=== PATIENT | male | born 1960 | race Caucasian/White ===

== ENCOUNTER 2016-11-04 13:46 | Emergency (ER) | payer OTHER ==
--- NOTE | ~2016-11-04 | EKG ---
PATIENT: KYLAH HUSSEIN UNIT #: [id number] Ventricular Rate: 80 BPM Atrial Rate: 80 BPM P-R Interval: 158 ms QRS Duration: 90 ms Q-T Interval: 400 ms QTC Calculation(Bezet): 461 ms P [place]: 42 degrees Calculated R [place]: -28 degrees Calculated T [place]: 8 degrees Diagnosis Line: Normal sinus rhythm Diagnosis Line: Minimal voltage criteria for LVH, may be normal Diagnosis Line: variant Diagnosis Line: Borderline ECG Diagnosis Line: When compared with ECG of 22-MAY-2015 06:26, Diagnosis Line: No significant change was found Diagnosis Line: Confirmed by JAKE CURRIE MD ([id number]) on Diagnosis Line: 12/21/2016 4:04:36 PM INTERPRETING MD: AVIVA
--- NOTE | ~2016-11-04 | CT71 ---
[facility] A Service of [facility] RADIOLOGY TEXT RESULTS PATIENT: KYLAH HUSSEIN LOCATION: SED : 58 UNIT #: [id number] AGE: [address]: Pollo Mcknight MD SEX: M ORDER DR: [id number] [address] [address] [id number] E MR#: [id number] Acc #: [id number] NAME: KYLAH HUSSEIN : 1960 SEX: M STUDY DATE/TIME: 11/04/2016 14:27 UNIT: SED ROOM: STUDY DESCRIPTION: CT Head Wo Contrast Attending Physician: Pollo Mcknight M.D. Ordering Physician: Pollo Mcknight M.D. Primary Care Physician: Garima Ramirez M.D. MEDICAL IMAGING REPORT This report is preliminary unless electronic signature is present. EXAM CT head without contrast dated 11/04/2016. COMPARISON STUDIES None HISTORY Syncope today while at work. Patient was lifting boxes when he fell. TECHNIQUE CT of the head was obtained without contrast in the axial plane as per the protocol. This CT exam was performed with one or more of the following radiation dose reduction techniques: automatic exposure control, adjustment of mA and/or kV according to patient size, and iterative reconstruction. FINDINGS Cavum septum pellucidum and verae are incidentally noted. No hydrocephalus, space-occupying intracranial mass, mass effect, midline shift, or hydrocephalus. S-shaped nasal septal deviation is seen. Nodular mucosal thickening is seen in bilateral maxillary antra, particularly in the floor. Mastoid air cells are well aerated. Diffuse fatty infiltration of bilateral parotid glands are seen. Accessory right parotid gland is also present. Streak artifact from dental work limits evaluation. IMPRESSION 1. No acute intracranial hemorrhage, hydrocephalus, space-occupying obvious large intracranial mass or midline shift. 2. Small cavum septum pellucidum and vergae are seen. 3. If there is persistent clinical concern, [facility] A Service of [facility] RADIOLOGY TEXT RESULTS PATIENT: KYLAH HUSSEIN LOCATION: SED : 58 UNIT #: [id number] AGE: [address]: Pollo Mcknight MD SEX: M ORDER DR: evaluation of subtle lesions. Dictated by... Bridget Craven M.D. THIS IS AN ELECTRONICALLY VERIFIED REPORT Bridget Craven M.D. at 11/05/2016 10:28 AM CPR/tmw TD: 11/04/2016 15:22 JOB #: [id number] MEDICAL IMAGING REPORT
--- NOTE | ~2016-11-04 | CR72 ---
[facility]. [facility] A Service of [facility] RADIOLOGY TEXT RESULTS PATIENT: KYLAH HUSSEIN LOCATION: SED : 58 UNIT #: [id number] AGE: [address]: Pollo Mcknight MD SEX: M ORDER DR: [id number] [address] [address] [id number] E MR#: [id number] Acc #: [id number] NAME: KYLAH HUSSEIN : 1960 SEX: M STUDY DATE/TIME: 11/04/2016 13:13 UNIT: SED ROOM: STUDY DESCRIPTION: CR Chest Single View Portable Attending Physician: Pollo Mcknight M.D. Ordering Physician: Pollo Mcknight M.D. Primary Care Physician: Garima Ramirez M.D. MEDICAL IMAGING REPORT This report is preliminary unless electronic signature is present. EXAM AP portable chest, 11/04/2016 at 13:13 HISTORY 56-year-old male with near-syncopal episode today. Weakness. COMPARISON PA and lateral chest radiograph, 05/21/2015. FINDINGS Stable mild cardiac enlargement. Pulmonary vascular distribution is normal. No acute airspace disease is seen. The medial lung apices is partially obscured by patient's chin. No pleural effusion or pneumothorax is identified. IMPRESSION Stable mild cardiac enlargement. No acute chest findings. Dictated by... Sonja Cooper M.D. THIS IS AN ELECTRONICALLY VERIFIED REPORT Sonja Cooper M.D. at 11/05/2016 2:14 PM VIPUL/james TD: 11/04/2016 14:16 JOB #: [id number] MEDICAL IMAGING REPORT
[~2016-11-04 13:46] MED LIST: ASPIRIN EC81 M1 PO; LOPRESSOR PO; VITAMIN D400 UNI2 PO; ZESTRIL5 MG PO
[2016-11-04 14:03] LABS: BASOPHIL% 0.4 % (0-2.5); EOSINOPHIL# 0.1 X10e3 (0-0.7); EOSINOPHIL% 1.6 % (0.0-7.0); HEMATOCRIT 33.6 % (38.0-50.0); LYMPHOCYTE# 1.1 X10e3 (1.0-3.5); LYMPHOCYTE% 12.3 % (17.0-45.0); MEAN CELL VOLUME 102.3 FL (83-96); MEAN CORPUSCULAR HEMOGLOBIN 33.4 PG (28-34); MEAN CORPUSCULAR HGB CONC 32.7 g/dL (30-36); MEAN PLATELET VOLUME 9.2 FL (6.5-11.5); MONOCYTE# 0.6 X10e3 (0-1.0); MONOCYTE% 7.2 % (3.0-12.0); NEUTROPHIL# 6.9 X10e3 (1.5-7.1); NEUTROPHIL% 78.5 % (40-75); PLATELET COUNT 130 X10e3 (140-420); RED BLOOD COUNT 3.28 X10e (3.90-5.60); WHITE BLOOD COUNT 8.8 X10e3 (4.0-10.5)
[2016-11-04 14:04] LABS: DIFF IND NO
[2016-11-04 14:04] LABS: POC - CKMB <1.0 ng/mL (0.0-7.9); POC - MYOGLOBIN 79.2 ng/mL (0.0-169.0); POC - TROPONIN <0.05 ng/mL (<=0.05)
[2016-11-04 14:38] LABS: BLOOD UREA NITROGEN 7 mg/dL (9-23); CARBON DIOXIDE 24 mmol/L (22-31); CHLORIDE 109 mmol/L (100-111); GLOM FILT RATE Estimated ABOVE60 mL/min (>60); GLUCOSE FASTING 80 mg/dL (70-110); SODIUM 141 mmol/L (135-145)
[2016-11-04 14:39] LABS: CALCIUM SERUM 5.7 mg/dL (8.4-10.2); POTASSIUM 2.9 mmol/L (3.5-5.1)
== END 2016-11-04 16:30 | disposition home or self-care (01) ==
LOC: SED 13:46
PROVIDERS: Emergency Medicine
DX: R55 Syncope and collapse (principal); E87.6 Hypokalemia; E83.51 Hypocalcemia; Z98.890 Other specified postprocedural states
CPT/HCPCS: 70450; 71010; 80048; 82553; 83874; 84484; 85025; 93005; 96361; 96365; 99284

== ENCOUNTER 2017-03-23 11:44 | Emergency (ER) | payer OTHER ==
[~2017-03-23] VITALS: Ht 175.3 cm; Wt 104.3 kg
--- NOTE | ~2017-03-23 | CR72 ---
[facility] A Service of [facility] & [facility] RADIOLOGY TEXT RESULTS PATIENT: KYLAH HUSSEIN LOCATION: [facility] : 58 UNIT #: [id number] AGE: [address]: Reece Mckeon MD SEX: M ORDER DR: [id number] [facility] [address] [place], [place] [address] [id number] E MR#: [id number] Acc #: [id number] NAME: KYLAH HUSSEIN : 1960 SEX: M STUDY DATE/TIME: 03/23/2017 12:52 UNIT: [facility] ROOM: STUDY DESCRIPTION: CR Chest Single View Portable Attending Physician: Reece Mckeon M.D. Ordering Physician: Reece Mckeon M.D. Primary Care Physician: Primary Care Physician No MEDICAL IMAGING REPORT This report is preliminary unless electronic signature is present EXAM Chest portable, 03/23/2017 1252 hours HISTORY 57-year-old man who suffered syncopal episode today. History of hypertension and prior seizure. COMPARISON 11/04/2016 FINDINGS Portable upright chest demonstrates stable vccc-mz-tlwxahbr cardiomegaly and minimally tortuous aorta. Pulmonary vascularity is normal. The lungs are clear and there are no effusions. IMPRESSION Stable ibon-lt-wbenwrkr cardiomegaly. The lungs are clear and there are no effusions. Dictated by... Jeri Cruz M.D. THIS IS AN ELECTRONICALLY VERIFIED REPORT Jeri Cruz M.D. at 03/24/2017 9:11 AM [place]/camille TD: 03/24/2017 02:15 JOB #: [id number] MEDICAL IMAGING REPORT Page 1 of 1 COPY
--- NOTE | ~2017-03-23 | EKG ---
PATIENT: KYLAH HUSSEIN UNIT #: [id number] Ventricular Rate: 85 BPM Atrial Rate: 85 BPM P-R Interval: 158 ms QRS Duration: 92 ms Q-T Interval: 374 ms QTC Calculation(Bezet): 445 ms P [place]: 52 degrees Calculated R [place]: -28 degrees Calculated T [place]: 10 degrees Diagnosis Line: Normal sinus rhythm Diagnosis Line: Normal ECG Diagnosis Line: When compared with ECG of 04-NOV-2016 13:27, Diagnosis Line: No significant change was found Diagnosis Line: Confirmed by MEHDI SO MD ([id number]) on Diagnosis Line: 03/23/2017 7:39:15 PM INTERPRETING MD: JUDAH BAEZ
--- NOTE | ~2017-03-23 | CT71 ---
[facility] A Service of [facility] RADIOLOGY TEXT RESULTS PATIENT: KYLAH HUSSEIN LOCATION: [facility] : 58 UNIT #: [id number] AGE: [address]: Reece Mckeon MD SEX: M ORDER DR: [id number] [facility] [address] [place], [place] [address] [id number] E MR#: [id number] Acc #: [id number] NAME: KYLAH HUSSEIN : 1960 SEX: M STUDY DATE/TIME: 03/23/2017 14:19 UNIT: [facility] ROOM: STUDY DESCRIPTION: CT Head Wo Contrast Attending Physician: Reece Mckeon M.D. Ordering Physician: Reece Mckeon M.D. Primary Care Physician: Primary Care Physician No MEDICAL IMAGING REPORT This report is preliminary unless electronic signature is present EXAM CT head without contrast dated 03/23/17 COMPARISON: CT head without contrast dated 11/04/16. HISTORY Syncope today. Patient fell and hit the right globe region. The CT exam was performed with one or more of the following radiation dose reduction techniques: automatic exposure control, adjustment of mA and/or kV according to patient size, and iterative reconstruction. FINDINGS CT of the head was obtained without contrast in the axial plane as per the protocol. There is mild soft tissue swelling noted in anterior midline aspect of the upper forehead close to the frontal scalp. No underlying fracture. There is no acute intracranial hemorrhage, hydrocephalus or midline shift. Cavum septum pellucidum is seen. There is a hypodense lesion note in the left lentiform nucleus, likely related to perivascular Virchow-Philip space, stable. No acute intracranial hemorrhage is seen There is retrocerebellar prominence of CSF posterior cerebellar vermis and extending to both sides of the cerebellar hemispheres, left greater than right. It is stable when compared to the prior study measuring 0.9 cm on the left and 0.7 on the right side. Atherosclerotic arterial vascular calcifications are seen. Imaged orbits with the ocular structures, left mastoid air cells are unremarkable. There is severe right mastoid, qich-wa-snppntwc right maxillary sinus mucosal thickening/fluid. Correlate with the inflammatory change . IMPRESSION 1. There is soft tissue swelling noted in the anterior subcutaneous region of the forehead superiorly. It extends into the bifrontal STS. [facility] A Service of [facility] & [facility] RADIOLOGY TEXT RESULTS PATIENT: KYLAH HUSSEIN LOCATION: [facility] : 58 UNIT #: [id number] AGE: [address]: Reece Mckeon MD SEX: M ORDER DR: scalp. 2. No underlying acute displaced fracture or acute intracranial hemorrhage. 3. Right mastoid and right maxillary sinus mucosal thickening and fluid is noted. Correlate with acute inflammation. Dictated by... Bridget Craven M.D. THIS IS AN ELECTRONICALLY VERIFIED REPORT Bridget Craven M.D. at 03/25/2017 2:08 PM CPR/cmm TD: 03/24/2017 08:32 JOB #: [id number] MEDICAL IMAGING REPORT Page 1 of 1 COPY
[2017-03-23 12:58] LABS: BASOPHIL% 0.2 % (0-2.5); EOSINOPHIL# 0.1 X10e3 (0-0.7); EOSINOPHIL% 0.8 % (0.0-7.0); HEMATOCRIT 38.2 % (38.0-50.0); HEMOGLOBIN 12.3 gm/dL (13.0-16.0); LYMPHOCYTE# 1.2 X10e3 (1.0-3.5); LYMPHOCYTE% 10.1 % (17.0-45.0); MEAN CELL VOLUME 104.4 FL (83-96); MEAN CORPUSCULAR HEMOGLOBIN 33.7 PG (28-34); MEAN CORPUSCULAR HGB CONC 32.2 g/dL (30-36); MEAN PLATELET VOLUME 8.2 FL (6.5-11.5); MONOCYTE# 0.7 X10e3 (0-1.0); MONOCYTE% 5.7 % (3.0-12.0); NEUTROPHIL# 10.2 X10e3 (1.5-7.1); NEUTROPHIL% 83.2 % (40-75); PLATELET COUNT 179 X10e3 (140-420); RED BLOOD COUNT 3.66 X10e (3.90-5.60); RED CELL DISTRIBUTION WIDTH 20.1 % (11.0-15.5); WHITE BLOOD COUNT 12.2 X10e3 (4.0-10.5)
[2017-03-23 13:01] LABS: POC - CKMB <1.0 ng/mL (0.0-7.9); POC - TROPONIN <0.05 ng/mL (<=0.05)
[2017-03-23 13:03] LABS: DIFF IND NO
[2017-03-23 13:28] LABS: ALBUMIN SERUM 3.4 g/dL (3.5-5.0); BILIRUBIN, DIRECT 0.1 mg/dL (0.0-0.2); BILIRUBIN,INDIRECT 0.3 mg/dL (0.0-0.9); BILIRUBIN,TOTAL 0.4 mg/dL (0.2-2.0); BUN/CREATININE RATIO 10.83; CALCIUM SERUM 8.1 mg/dL (8.4-10.2); CREATININE SERUM 1.2 mg/dL (0.6-1.4); GLOM FILT RATE Estimated 66.3 mL/min (>60); POTASSIUM 3.6 mmol/L (3.5-5.1); PROTEIN TOTAL SERUM 7.2 g/dL (6.0-8.3)
[2017-03-23 15:00] LABS: URINE SOURCE CLEAN CATCH
[2017-03-23 15:07] LABS: URINE APPEARANCE CLEAR; URINE BILIRUBIN NEG (NEG); URINE BLOOD NEG (NEG); URINE COLOR YELLOW; URINE GLUCOSE NEG (NEG); URINE KETONE TRACE (NEG); URINE LEUKOCYTE ESTERASE NEG (NEG); URINE NITRATE NEG (NEG); URINE PROTEIN NEG (NEG); URINE SPECIFIC GRAVITY 1.015 (1.003-1.035); URINE UROBILINOGEN 0.2 MG/DL (NEG)
[2017-03-23 15:19] LABS: CULTURE INDICATED? NO
== END 2017-03-23 15:53 | disposition home or self-care (01) ==
LOC: CED 11:44
PROVIDERS: Emergency Medicine
DX: S09.90XA Unspecified injury of head, initial encounter (principal); R55 Syncope and collapse; I10 Essential (primary) hypertension; X58.XXXA Exposure to other specified factors, initial encounter
CPT/HCPCS: 36415; 70450; 71010; 80048; 80076; 81003; 82550; 82553; 82947; 84484; 85025; 93005; 96360; 99285